=== PATIENT | female | born 1940 | race Caucasian/White ===

== ENCOUNTER 2017-10-05 12:29 | Day surgery (SDC) | payer MEDICAID ==
[~2017-10-05] VITALS: Ht 149.9 cm; Wt 57.0 kg
[2017-10-05] VITALS (8 sets, daily range): BP systolic 117–142; BP diastolic 62–82; PULSE 54–75; TEMP 98.4
[2017-10-05 13:07] LABS: HEMATOCRIT 38.2 % (37.0-47.0); HEMOGLOBIN 12.7 g/dl (12.5-16.0); MEAN CELL VOLUME 91 fl (80.0-100.0); MEAN CORPUSCULAR HEMOGLOBIN 30 pg (27.0-31.0); MEAN CORPUSCULAR HGB CONC 33 g/dl (33.0-37.0); MEAN PLATELET VOLUME 9.7 fl (7.4-10.4); PLATELET COUNT 149 K/mm3 (130-400); RED BLOOD COUNT 4.18 M/mm3 (4.10-5.30)
[2017-10-05 13:14] LABS: PROTHROMBIN TIME 11.6 SECONDS (9.7-12.8)
[2017-10-05 13:19] LABS: CALCIUM 9.8 mg/dL (8.4-10.2); CREATININE, serum 0.77 mg/dL (0.52-1.25); POTASSIUM 3.5 mmol/L (3.4-5.0)
[2017-10-05] MEDS ORDERED: MULTIPLE VITAMI1 CAP PO (13:43)
[2017-10-05] MEDS ORDERED: K-DUR 10 MEQ T10 MEQ PO (13:43)
[2017-10-05] MEDS ORDERED: ZANTAC 150MG T150 MG PO (13:47)
[2017-10-05] MEDS ORDERED: LIPITOR 10MG10 MG PO (13:48)
[2017-10-05] MEDS ORDERED: PLAVIX 75MG TAB75 MG PO (13:48)
[2017-10-05] MEDS ORDERED: LOPRESSOR 550 MG/TAB PO (13:49)
[2017-10-05] MEDS ORDERED: SYNTHROID0.05 MG/TA PO (13:49)
[2017-10-05] MEDS ORDERED: BENTYL 20MG20 MG/TAB PO (13:50)
[2017-10-05] MEDS ORDERED: PRINZIDE 25 MG-1 TAB PO (13:50)
[2017-10-05] MEDS ORDERED: STOOL SOFTENER100 M2 PO (13:51)
[2017-10-05] MEDS ORDERED: CALCIUM CARBON650 M2 PO (13:51)
[2017-10-05] MEDS ORDERED: FERRO-TIME325 MG PO (13:52)
[2017-10-05] MEDS ORDERED: FIBER0.52 GM PO (13:52)
== END 2017-10-05 18:53 | disposition home or self-care (01) ==
LOC: COL.CAR 12:29
PROVIDERS: Internal Medicine Interventional Cardiology
DX: I25.118 Atherosclerotic heart disease of native coronary artery with other forms of angina pectoris (principal); R94.39 Abnormal result of other cardiovascular function study; I10 Essential (primary) hypertension; I27.20 Pulmonary hypertension, unspecified; Z91.81 History of falling; Z79.82 Long term (current) use of aspirin; Z88.0 Allergy status to penicillin; Z87.891 Personal history of nicotine dependence; Z83.3 Family history of diabetes mellitus
CPT/HCPCS: J2250; J3010; Q9967